=== PATIENT | female | born 1965 | race Caucasian/White ===

== ENCOUNTER 2023-04-26 09:59 | Outpatient (CLI) | payer BC, MEDICAID, SELFPAY ==
--- NOTE | 2023-04-26 10:11 | MM_ITS ---
WS: [id number] Bilateral screening 3D tomosynthesis digital mammogram, 04/26/2023 Clinical Data: SCREENING Comparison: None. Findings: The breast parenchymal pattern shows fat replacement. No spiculated masses or clustered calcification s are seen. There are no secondary signs of carcinoma. There are lymph nodes in both axilla. MM/[place] [id number] Impression: 1. Negative bilateral mammogram with no prior exam for review. 2. Recommend annual screening mammograms. BIRADS: 1-Negative FOLLOW UP: 1 Year Follow-up The CAD frequency checker was used.
--- NOTE | 2023-04-26 10:56 | CT_ITS ---
WS: [id number] LDCT LUNG CANCER SCREENING HISTORY: NICOTINE DEPENDENCE, CIGARETTES TECHNIQUE: Axial imaging performed from the apices to 1 cm below the costophrenic angles. Coronal and sagittal reformats are submitted with axial MIP series. All CT scans at [facility] use at least one of these dose optimization techniques: automated exposure control; mA and/or kV adjustment per patient size (includes targeted exams where dose is matched to clinical indication); or iterativ e reconstruction. DLP: 129.70 mGy.cm DIvol: Mean CTDIvol: 3.10 (mGy) COMPARISON: None available. Diagnostic quality: Satisfactory Lungs: No pulmonary mass or nodule. No pneumonia. No endobronchial lesions. Benign granuloma RIGHT ap ex. Heart: Normal size heart with no pericardial effusion.. Other findings: Normal size thoracic aorta. Mild pulmonary enlargement. No pericardial effusion. No h iatal hernia. No adenopathy. As visualized the adrenal glands are negative but incompletely included. Mild thoracic spondylosis. CT/CT lung screening [id number] IMPRESSION: LUNG-RADS: 1-Negative FOLLOW UP: 12 Month: Continue annual screening with LDCT OTHER FINDINGS (S MODIFIER): None.
== END 2023-04-26 10:00 | disposition home or self-care (01) ==
PROVIDERS: PCP Family Medicine; Visit Provider Family Medicine
DX: Z12.31 Encounter for screening mammogram for malignant neoplasm of breast (principal); Z12.2 Encounter for screening for malignant neoplasm of respiratory organs; F17.210 Nicotine dependence, cigarettes, uncomplicated
CPT/HCPCS: 71271; 77063; 77067

== ENCOUNTER → 2023-05-04 10:49 | Outpatient (BNVA) | payer BC, MEDICAID, SELFPAY | PROVIDERS: PCP Family Medicine; Referring Provider Family Medicine; Visit Provider Student in an Organized Health Care Education/Training Program | DX: M20.011 Mallet finger of right finger(s) | CPT/HCPCS: 73130 ==

== ENCOUNTER 2023-06-07 05:45 | Day surgery (SDC) | payer BC, MEDICAID, SELFPAY ==
[2023-06-06 12:56] VITALS: BMI 33.2
[2023-06-07] VITALS (10 sets, daily range): BP systolic 124–163; BP diastolic 73–98; PULSE 64–91; RESP 16–19; TEMP 36.6–37; O2SAT 93–99
--- NOTE | 2023-06-07 | XR_ITS ---
WS: [id number] Exam: XR finger RT min 2V [id number] Date/Time of Exam: 06/07/2023 5:28 PM Reason For Exam: RIGHT ring finger, mallet pinning AP and lateral C-arm images of the ring finger are submitted for evaluation. A pin courses through the long axis of the distal and middle phalanges of the fourth finger apparentl y secondary to flexion deformity correction. No other significant finding on this limited series.
[2023-06-07] MEDS: sodium chloride 0.9% 1,000 ML 30 ML IV (06:38)
[2023-06-07] MEDS: ketorolac 30 mg/mL INJ IVP (06:39)
[2023-06-07] MEDS: acetaminophen 1,000 MG/100 ML PIGGYBACK 400 MG IV (06:48)
[2023-06-07 06:49] LABS: Glucose Point of Care 136 mg/dL (70-110)
--- NOTE | 2023-06-07 06:57 | W.PM.OPSUD ---
Surgery/Procedure H&P Update DATE OF PROCEDURE: June 07, 2023 DATE H&P PERFORMED: 05/23/23 H&P UPDATE INFORMATION: I have reviewed H&P completed within last 30 days, I have examined patient prior to procedure, No changes to prior documentation and [place] [facility] date indicated PREOP DIAGNOSIS: right ring finger chronic mallet PRIMARY INDICATION FOR PROCEDURE: Right ring finger chronic mallet PLANNED PROCEDURE: Operation Date: 06/07/23 07:00 Proposed Procedures p RIGHT RING FINGER CHRONIC MALLET REPAIR 60247,M20.011(Right) - Chadwick Light DO
[2023-06-07] MEDS: ceFAZolin 2,000 MG in sodium chloride 0.9% (plus) 50 ML 100 MG IV (07:04)
[2023-06-07 07:38] LABS: Blood Urea Nitrogen 14 mg/dL (6-20); Calcium 8.7 mg/dL (8.5-10.5); Carbon Dioxide 26 mmol/L (22-29); Chloride 104 mmol/L (98-107); Glomerular Filtration Rate 85.6 mL/min (90-130); Glucose 123 mg/dL (65-115); Osmolality Calculated 294 mOsm/kg (285-295); Sodium 141 mmol/L (136-145)
[2023-06-07] MEDS: lidocaine 2% INJ 20 mL INJECTION (07:42)
[2023-06-07] MEDS: ROPivacaine 0.5% SDV 30 mL 150 MG INJECTION (07:42)
[2023-06-07 07:46] LABS: Anion Gap 15.2 (5-19); Potassium 4.2 mmol/L (3.5-5.1)
--- NOTE | 2023-06-07 07:59 | PM.OP2 ---
Brief Operative Note Date of procedure: 06/07/23 Pre-op diagnosis: Right ring finger chronic mallet Post-op diagnosis: same Procedure Done: Right ring finger chronic mallet repair with pinning Surgeon: Chadwick Light Estimated blood loss (mL): 5 Complications: none Post-op Plan: Orthopedic discharge instructions: Keep dressing clean dry and intact Keep Splint on and dry until follow-up appointment in orthopedic office in 2 weeks. No baths or soaks No weightbearing on right hand Ice and elevate as needed for pain and swelling Take pain medication as prescribed Take antinausea medication as needed Follow-up with Dr. Light in the office in 2 weeks Contact the office for any questions or concerns Condition: stable Disposition: PACU Coding Level of Care Code Acute Code for Gurdeep Scales
--- NOTE | 2023-06-07 08:01 | P.PCN_ITS ---
PACU note Narrative: Patient is a 58-year-old female that just underwent a right ring finger chronic mallet repair. Patient transferred to PACU in stable condition. Patient is alert and responsive to questions. Pain is well controlled. Dressing and splint on hand is dry and in place. Patient's fingers are warm and well- perfused. Patient can wiggle fingers. normal cap refill under 2 seconds. Patient has normal elbow range of motion. Sensation to hand intact. Exam: awake Disposition: discharged
--- NOTE | 2023-06-07 08:04 | P.BOP_ITS ---
Date of procedure: [06/07/2023] Surgeon name: [Dr. Kuldeep CARPENTER] Spinner Operator(s) name(s): [Tyler Light physician marketing assistant retail division] Procedure(s) performed: [Right ring finger chronic mallet tendon repair, Right ring finger DIP joint pinning] Description of findings: Right ring finger chronic mallet [] Estimated blood loss: [5] Specimen(s) removed: [0] Post-operative diagnosis: [Right ring finger chronic mallet]
--- NOTE | 2023-06-07 08:10 | PM.OP ---
Operative Report Date of procedure: June 07, 2023 Pre-op diagnosis: Right ring finger chronic mallet Post-op diagnosis: Same Post-op findings: See operative report narrative patient had right ring finger chronic mallet Procedure done: Right ring finger chronic mallet tendon repair Right ring finger DIP joint percutaneous pinning Implants: 1x0.045 K wire Surgeon: Chadwick Light DO Manager Product Management: Tyler Light PA-C Anesthesia: MAC (Local) Estimated blood loss: 1 16mins IV fluids: 800 mL Complications: None Findings: see op note narrative Condition: stable Disposition: same day Brief History: Patient presenting to outpatient setting worked up for right ring finger chronic mallet. Patient was treated nonoperatively for 6 weeks and a mallet finger splint from an outside facility. Patient had splint removed and had a subsequent immediate return of a chronic deformity has had persistent pain and deformity and she wanted to have this corrected we talked about treatment options through shared decision making she elects to proceed with a right ring finger chronic mallet repair. Patient understands and agrees with current plan. Questions answered. Procedure: Patient seen eval in the preoperative holding area. Consent was reviewed and signed with patient. Correct extremity/digit was then marked. Patient was evaluated by anesthesia was cleared for surgery she was brought back to the operative suite kept on the [place] [employer] s[employer] and an armboard to the right upper extremity. Nonsterile tourniquet applied to right upper arm. Patient then underwent anesthesia per the anesthesia department as properly anesthetized the right upper extremity was then prepped and draped in standard orthopedic fashion. Final timeout performed. Patient received appropriate preoperative antibiotics. Finger turnicot was then placed on the right ring finger. I then took x-rays with large fluoroscopic C arm to pin the DIP joint into full extension to accommodate for my repair. I used a 0.45 K wire and advanced this in retrograde fashion through the distal phalanx and into the middle phalanx into the base. This held my finger in full extension. I then proceeded with my repair. I utilized a dermatotenodesis repair of the chronic mallet finger. I made an ellipsed incision ellipsing out the skin and scar tissue tendon. Maintained exact hemostasis. I then subsequently utilized knife and mobilized the distal and proximal ends of the stump to have appropriate tendon excursion for repair once this was appropriately prepped and had excellent end and reduction I then thoroughly irrigated the wound bed. I then performed a dermatotenodesis. Full-thickness bites with 2?0 nylon suture repairing of the skin as well as the tendon with full-thickness bites multiple stitches repaired to complete the dermatotenodesis repair of the extensor tendon. This completed my repair tourniquet was deflated hemostasis satisfactory finger was then dressed with Xeroform 4 x 4's Kerlix and a soft roll. The pin was then subsequently bent and cut and then capped at the fingertip. An ulnar gutter splint was then placed. Patient awakened from anesthesia and patient was then taken to PACU in stable condition. Disposition: Patient taken to PACU in stable condition recovering well pain controlled. Patient will receive appropriate discharge instruction as well as pain medication postoperatively. We will follow-up in the office in 2 weeks.
--- NOTE | 2023-06-07 09:52 | ANES.PREANE2 ---
Pre-Anesthetic Assessment Height/Weight: Height 1.75 m Weight 102.058 kg Temp Pulse Resp BP Pulse Ox O2 Del Method O2 Flow Rate 98.6 F 66 16 133/82 97 Room Air 6 06/07/23 08:27 06/07/23 08:27 06/07/23 08:27 06/07/23 08:27 06/07/23 08:27 06/07/23 08:27 06/07/23 08:03 Preop Diagnosis: right ring finger chronic mallet Operation Date: 06/07/23 07:00 Proposed Procedures p RIGHT RING FINGER CHRONIC MALLET REPAIR 48183,M20.011(Right) - Chadwick [place], DO Familial anesthetic complications: none Was Beta Antonia taken within 24 hours: N/A Was Clonidine taken within 24 hours: N/A Last intake: Intake Last Liquid Date 06/06/23 Last Liquid Time 22:00 Last Solid Date 06/06/23 Last Solid Time 22:00 Social Tobacco and No alcohol Exam alert, oriented x 3 and regular rate & rhythm Airway Submandibular: within normal limits Cervical ROM: within normal limits Mallampati: Class II Dentition: chipped Pulmonary Chronic Obstructive Pulmonary Disease CV/HEM Hypertension GI Gastroesophageal Reflux Disease Metabolic Diabetes Mellitus, Hyperlipidemia, Morbid Obesity and Thyroid Disease Anesthetic Plan ASA status: 3 Anesthesia: Choice Medications/Allergies Home Medications Medication Instructions Recorded Confirmed Last Taken Type amlodipine 10 mg tablet 5 mg PO DAILY 05/04/23 06/06/23 Unknown History atorvastatin 10 mg tablet 10 mg PO DAILY 05/04/23 06/06/23 06/06/23 History diphenhydramine HCl 25 mg capsule 25 mg PO TID PRN . 05/04/23 06/06/23 06/05/23 History (Allergy Relief (diphenhydramine)) dulaglutide 4.5 mg/0.5 mL 1 mg SUBCUT .weekly diabetic 05/04/23 06/06/23 06/02/23 History subcutaneous pen injector (Trulicity) duloxetine 60 mg capsule,delayed 60 mg PO DAILY 05/04/23 06/06/23 06/05/23 History release (Cymbalta) levothyroxine 100 mcg capsule 50 mcg PO DAILY 05/04/23 06/06/23 06/06/23 History losartan 50 mg tablet 100 mg PO DAILY 05/04/23 06/06/23 06/05/23 History metformin 500 mg tablet 1,000 mg PO BID 05/04/23 06/06/23 06/06/23 History omeprazole 20 mg capsule,delayed 20 mg PO DAILY 05/04/23 06/06/23 06/06/23 History release pregabalin 50 mg capsule (Lyrica) 75 mg PO BID 05/04/23 06/06/23 06/06/23 History tizanidine 4 mg capsule 4 mg PO BID PRN muscle spams 05/04/23 06/06/23 06/05/23 History ondansetron 4 mg disintegrating 4 mg PO Q8H PRN nausea and 06/07/23 Unknown Rx tablet vomiting 3 days #9 tabs tramadol 50 mg tablet 50 mg PO Q6H PRN pain #20 tabs 06/07/23 Unknown Rx Allergies Allergy/AdvReac Type Severity Reaction Status Date / Time venom-wasp Allergy ALGY-Anaphy Verified 06/07/23 06:01 laxis lisinopril Allergy Mild cough Uncoded 06/07/23 05:59 artificial sweetener Allergy ALGY-Swell Uncoded 06/07/23 06:01 Lip/Tongue/Throat Current Medications Generic Name Dose Route Start Last Admin Trade Name Freq PRN Reason Stop Dose Admin Sodium Chloride 1,000 mls @ 30 mls/hr 06/07/23 06:00 06/07/23 06:38 Sodium Chloride 0.9% IV 06/08/23 05:59 30 mls/hr .Q24H JUAN Administration PFSH Anesthesia Medical History (Updated 06/06/23 @ 13:06 by Bisi Jacques RN) Mallet deformity of right ring finger Social History Smoking and tobacco status: current every day smoker Alcohol intake: current Alcohol intake frequency: holidays/special occasions only Data Anesthesia 06/07/23 06:45 BMP 06/07/23 06:45 Sodium 141 Potassium 4.2 Chloride 104 Carbon Dioxide 26 BUN 14 Creatinine 0.7 Glucose 123 H Calcium 8.7 Cardiac Studies: No Data to Display
--- NOTE | 2023-06-07 13:48 | ANE.PACU2 ---
Inpatient post-anesthesia follow up: Airway intact: Yes Vital signs: Temperature 98.6 F Pulse Rate 66 Respiratory Rate 18 Blood Pressure 136/81 Pulse Oximetry 98 Oxygen Delivery Me thod Room Air Oxygen Flow Rate 6 Fraction of Inspir ed Oxygen Hydration adequate: Yes Nausea and vomiting: No Pain level: 2 Mental status: Baseline
== END 2023-06-07 09:13 | disposition home or self-care (01) ==
PROVIDERS: Anesthesiology; PCP Family Medicine; Visit Provider Student in an Organized Health Care Education/Training Program
PROC: (CPT 26433; principal; 2023-06-07 07:00)
DX: M20.011 Mallet finger of right finger(s) (principal); J44.9 Chronic obstructive pulmonary disease, unspecified; I10 Essential (primary) hypertension; E11.9 Type 2 diabetes mellitus without complications; E78.5 Hyperlipidemia, unspecified; E66.01 Morbid (severe) obesity due to excess calories; Z68.33 Body mass index [BMI] 33.0-33.9, adult; F17.210 Nicotine dependence, cigarettes, uncomplicated
CPT/HCPCS: 26433; 36415; 36416; 73140; 76000; 80048; 82962; C1713; J0131; J0330; J0690; J1885; J2704; J2710; J2795; J3010; J3490; J7030

== ENCOUNTER 2023-07-25 06:00 | Outpatient (CLI) | payer BC, MEDICAID, SELFPAY | END 2023-07-25 06:01 | LOC: SOT 07-28 10:09 | PROVIDERS: PCP Family Medicine; Visit Provider Student in an Organized Health Care Education/Training Program | DX: Z47.89 Encounter for other orthopedic aftercare (principal) | CPT/HCPCS: 97110; 97165; 97530 ==

== ENCOUNTER 2023-10-25 11:38 | Outpatient (CLI) | payer BC, MEDICAID, SELFPAY ==
--- NOTE | 2023-10-25 11:44 | MR_ITS ---
WS: [id number] MRI LUMBAR SPINE NONCONTRAST TECHNIQUE: Sagittal T1, T2 and STIR imaging. Axial T1 and T2 imaging. CLINICAL INFORMATION: VERTEBROGENIC LOW BACK PAIN COMPARISON: FINDINGS: Mild lumbar curve. No acute compression. Slight anterolisthesis L3 on L4. Disc bulging worse at L4-5 with a small annular fissure. L1-L2: Tiny shallow central protrusion with mild central canal stenosis. Impingement subarticular rec ess bilaterally. Moderate facet arthropathy. Foramen are patent. L2-L3: Mild annular bulging. Moderate facet arthropathy. Mild central canal stenosis. L3-L4: Grade 1 anterolisthesis. Disc bulging in combination with facet arthropathy and ligamentum fla vum hypertrophy results in moderate to severe central canal stenosis. L4-L5: Mild disc bulging with a shallow central protrusion. Moderate to severe central canal stenosis with impingement traversing L5 nerve roots bilaterally. Moderate facet arthropathy. Foramen are gleason nt. Small annular fissure. L5-S1: Mild annular bulging. Slight encroachment traversing LEFT S1 nerve root. Moderate facet arthro johnson. Spinal canal and foramen are patent. Visualized pelvic bony structures: Normal. Paravertebral soft tissues: Normal. Partially visualized LEFT renal cyst measuring 3.1 cm. IMPRESSION: 1. Mild lumbar curve. No acute compression. Slight anterolisthesis L3 on L4. 2. Moderate to severe central canal stenosis L3-4 with impingement of traversing L4 nerve roots bila terally. Moderate to severe central canal stenosis L4-5 with a shallow central protrusion and impinge ment of the traversing L5 nerve roots bilaterally. Facet arthropathy and ligamentum flavum hypertroph y contributes to stenosis at these levels. 3. Shallow central protrusion L1-2 and L2-3 with mild central canal stenosis.
== END 2023-10-25 11:39 | disposition home or self-care (01) ==
LOC: RAD 11:38
PROVIDERS: PCP Family Medicine; Visit Provider Anesthesiology Pain Medicine
DX: M54.51 Vertebrogenic low back pain (principal); M47.16 Other spondylosis with myelopathy, lumbar region; M47.26 Other spondylosis with radiculopathy, lumbar region
CPT/HCPCS: 72148

== ENCOUNTER 2023-11-24 13:16 | Outpatient (CLI) | payer BC, MEDICAID, SELFPAY ==
--- NOTE | 2023-11-24 13:22 | US_ITS ---
WS: [id number] RENAL ULTRASOUND HISTORY: RENAL CYST COMPARISON: MRI 10/25/2023 TECHNIQUE: 2-D and color Doppler imaging of the kidney submitted. Right kidney: 11.1 cm x 6.4 cm x 4.7 cm. Cortex: 1.3 cm Normal echogenicity with no hydronephrosis or mass. Left kidney: 11.1 cm x 6.1 cm x 4.6 cm. Cortex: 1.2 cm Normal size kidney with no hydronephrosis or obstruction. Simple cyst lower pole measures 1.7 x 1.9 x 1.5 cm. There is a small exophytic cyst from the mid kidney measuring 1.1 x 1.0 x 0.9 cm. Aorta: Normal. Urinary Bladder: Minimally distended. IMPRESSION: 1. No hydronephrosis or solid renal mass. 2. Simple renal cysts x2 LEFT kidney with the largest measuring 1.7 x 1.9 x 1.5 cm.
== END 2023-11-24 13:17 | disposition home or self-care (01) ==
LOC: RAD 13:17
PROVIDERS: PCP Family Medicine; Visit Provider Family Medicine
DX: N28.1 Cyst of kidney, acquired (principal)
CPT/HCPCS: 76770

== ENCOUNTER 2023-11-28 11:14 | Outpatient (CLI) | payer BC, MEDICAID, SELFPAY ==
--- NOTE | 2023-11-28 11:22 | XRR_ITS ---
PROCEDURE INFORMATION: Exam: XR Left Knee Exam date and time: 11/28/2023 11:45 AM Age: 58 years old Clinical indication: Swelling or effusion of joint; Knee; Additional info: Knee swelling TECHNIQUE: Imaging protocol: Radiologic exam of the left knee. Views: 3 views. COMPARISON: No relevant prior studies available. FINDINGS: Bones/joints: No fracture or other acute osseous abnormality identified. Soft tissues: No soft tissue gas or radiodense foreign body. XR/XR knee LT 3V* [id number] IMPRESSION: No acute abnormality detected.
== END 2023-11-28 11:15 | disposition home or self-care (01) ==
LOC: RAD 11:16
PROVIDERS: PCP Family Medicine; Visit Provider Family Medicine
DX: M25.462 Effusion, left knee (principal)
CPT/HCPCS: 73562

== ENCOUNTER 2024-05-02 08:47 | Outpatient (CLI) | payer BC, MEDICAID, SELFPAY ==
--- NOTE | 2024-05-02 08:54 | CT_ITS ---
WS: [id number] LDCT LUNG CANCER SCREENING HISTORY: TOBACCO USE TECHNIQUE: Axial imaging performed from the apices to 1 cm below the costophrenic angles. Coronal and sagittal reformats are submitted with axial MIP series. All CT scans at [facility] use at least one of these dose optimization techniques: automated exposure control; mA and/or kV adjustment per patient size (includes targeted exams where dose is matched to clinical indication); or iterativ e reconstruction. DLP: 126.75 mGy.cm DIvol: Mean CTDIvol: 3.20 (mGy) COMPARISON: 04/26/2023 Diagnostic quality: Satisfactory Lungs: Mild paraseptal emphysema. Benign granuloma RIGHT apex. Mild peripheral interstitial prominenc e. No mass or nodule. No endobronchial lesions. Heart: Normal size heart with no pericardial effusion.. Other findings: Normal size aorta and pulmonary artery. Small mediastinal and hilar lymph nodes. Some of the lymph nodes are calcified. No pericardial or pleural effusion. Small hiatal hernia. Hepatic s teatosis. No adrenal mass. CT/CT lung screening [id number] IMPRESSION: LUNG-RADS: 1-Negative FOLLOW UP: 12 Month: Continue annual screening with LDCT OTHER FINDINGS (S MODIFIER): None.
== END 2024-05-02 08:48 | disposition home or self-care (01) ==
LOC: RAD 08:48
PROVIDERS: PCP Family Medicine; Visit Provider Family Medicine
DX: Z12.2 Encounter for screening for malignant neoplasm of respiratory organs (principal); F17.210 Nicotine dependence, cigarettes, uncomplicated; J43.8 Other emphysema; K44.9 Diaphragmatic hernia without obstruction or gangrene
CPT/HCPCS: 71271

== ENCOUNTER 2024-06-05 09:59 | Outpatient (CLI) | payer BC, MEDICAID, SELFPAY ==
--- NOTE | 2024-06-05 10:00 | MM_ITS ---
WS: [id number] SCREENING DIGITAL TOMOSYNTHESIS MAMMOGRAM WITH CAD HISTORY: SCREENING COMPARISON: 04/26/2023 Bilateral CC and MLO with tomosynthesis views submitted. Synthetic mammography reviewed. Computer aid ed detection analyzed. Breast composition: The breasts are almost entirely fatty. No suspicious masses, microcalcifications or architectural distortion. MM/[place] [id number] IMPRESSION: BI-RADS: 1 - Negative. FOLLOW UP: 1 Year Follow-up
== END 2024-06-05 10:00 | disposition home or self-care (01) ==
LOC: MOBLMAM 10:03
PROVIDERS: PCP Family Medicine; Visit Provider Family Medicine
DX: Z12.31 Encounter for screening mammogram for malignant neoplasm of breast (principal)
CPT/HCPCS: 77063; 77067

== ENCOUNTER 2025-03-10 09:45 | Outpatient (CLI) | payer BC, MEDICAID, SELFPAY ==
--- NOTE | 2025-03-10 09:51 | XRR_ITS ---
PROCEDURE INFORMATION: Exam: XR Left Knee Exam date and time: 03/10/2025 9:59 AM Age: 59 years old Clinical indication: Left; Lt knee pain for 2 years, PT fell on ice 2 years ago; Additional info: Pain in L knee/swelling on pop fossa TECHNIQUE: Imaging protocol: Radiologic exam of the left knee. Views: 4 or more views. COMPARISON: CR XR knee LT 3V* [id number] 11/28/2023 11:45 AM FINDINGS: Bones/joints: Normal. Soft tissues: Normal. XR/XR knee LT 4V [id number] IMPRESSION: No acute findings.
== END 2025-03-10 09:46 | disposition home or self-care (01) ==
LOC: RAD 09:47
PROVIDERS: PCP Family Medicine; Visit Provider Family Medicine
DX: M25.562 Pain in left knee (principal)
CPT/HCPCS: 73564